=== PATIENT | female | born 1945 | race Caucasian/White ===

== ENCOUNTER 2016-12-26 21:46 | Inpatient (IN) | payer OTHER ==
[~2016-12-26] VITALS: Ht 154.9 cm; Wt 98.4 kg
[~2016-12-26 21:46] MED LIST: AMITRIPTYLINE H10 MG PO; HYOSCYAMINE0.375 MG PO; LEVOTHYROXINE75 MCG PO; METOPROLOL SUCC50 MG PO; PREVACID30 MG PO; ZANTAC75 M1 PO
[2016-12-27 09:46] VITALS: BP 155/76
[2016-12-27 13:53] LABS: POINT-OF-CARE METER ID UU13113675; POINT-OF-CARE USER ID 515036437
[2016-12-27 15:24] VITALS: BP 154/72
[2016-12-27 18:42] LABS: HEMATOCRIT 40.9 % (36.0-46.0); MCH 31.5 PG (29.0-34.0); MCHC 34.2 G/DL (30.0-36.0); MCV 91.9 FL (83-99); MEAN PLAT.VOLUME 10.3 uM^3 (9.5-12.4); PLATELET COUNT 229 K/uL (156-360); RBC DIS.WIDTH-CV 12.4 % (11.8-14.6); RBC DIS.WIDTH-SD 41.9 % (39-53); RED BLOOD COUNT 4.45 M/uL (3.80-5.20); WHITE BLOOD COUNT 8.9 K/uL (4.1-10.2)
[2016-12-27 19:08] LABS: ANION GAP 9 MEQ/L (2-14); CHLORIDE 101 MEQ/L (99-109); GFR ESTIMATE (CALCULATED) > 59 mL/min/; GLUCOSE 213 mg/dL (70-99); SAMPLE HEMOLYSIS CHECK 0; SAMPLE ICTERIC CHECK 0; SAMPLE LIPEMIA CHECK 0; SODIUM 136 MEQ/L (136-147); UREA NITROGEN (BUN) 13 mg/dL (9-23)
[2016-12-27 20:06] VITALS: BP 181/89
[2016-12-27 20:45] VITALS: BP 144/80
[2016-12-27 23:36] VITALS: BP 160/84
[2016-12-28 03:49] VITALS: BP 130/68
[2016-12-28 06:15] LABS: MCH 30.9 PG (29.0-34.0); MCHC 34.4 G/DL (30.0-36.0); MCV 90.1 FL (83-99); MEAN PLAT.VOLUME 10.5 uM^3 (9.5-12.4); PLATELET COUNT 256 K/uL (156-360); RBC DIS.WIDTH-CV 12.1 % (11.8-14.6); RED BLOOD COUNT 4.33 M/uL (3.80-5.20); WHITE BLOOD COUNT 10.5 K/uL (4.1-10.2)
[2016-12-28 06:36] LABS: ANION GAP 7 MEQ/L (2-14); CHLORIDE 102 MEQ/L (99-109); GFR ESTIMATE (CALCULATED) > 59 mL/min/; GLUCOSE 179 mg/dL (70-99); POTASSIUM 4.2 MEQ/L (3.7-5.4); SAMPLE HEMOLYSIS CHECK 0; SAMPLE ICTERIC CHECK 0; SAMPLE LIPEMIA CHECK 0; SODIUM 140 MEQ/L (136-147); UREA NITROGEN (BUN) 9 mg/dL (9-23)
[2016-12-28 07:10] VITALS: BP 138/68
[2016-12-28 11:15] VITALS: BP 120/63
[2016-12-28 15:25] VITALS: BP 149/70
[2016-12-28 18:00] VITALS: BP 103/51
[2016-12-28 19:37] VITALS: BP 132/62
[2016-12-29] VITALS: BP 138/74
[2016-12-29 03:26] VITALS: BP 146/70
[2016-12-29 05:57] LABS: HEMATOCRIT 35.8 % (36.0-46.0); MCH 31.2 PG (29.0-34.0); MCHC 33.8 G/DL (30.0-36.0); MCV 92.3 FL (83-99); MEAN PLAT.VOLUME 10.7 uM^3 (9.5-12.4); PLATELET COUNT 203 K/uL (156-360); RBC DIS.WIDTH-CV 12.9 % (11.8-14.6); RBC DIS.WIDTH-SD 43.3 % (39-53); RED BLOOD COUNT 3.88 M/uL (3.80-5.20); WHITE BLOOD COUNT 9.6 K/uL (4.1-10.2)
[2016-12-29 06:23] LABS: ANION GAP 4 MEQ/L (2-14); CHLORIDE 104 MEQ/L (99-109); GFR ESTIMATE (CALCULATED) > 59 mL/min/; POTASSIUM 3.9 MEQ/L (3.7-5.4); SAMPLE HEMOLYSIS CHECK 0; SAMPLE ICTERIC CHECK 0; SAMPLE LIPEMIA CHECK 0; SODIUM 140 MEQ/L (136-147); UREA NITROGEN (BUN) 11 mg/dL (9-23)
[2016-12-29 06:25] LABS: GLUCOSE 112 mg/dL (70-99)
[2016-12-29 08:00] VITALS: BP 149/79
[2016-12-29] MEDS ORDERED: TRAMADOL HCL50 MG PO (09:23)
== END 2016-12-29 11:14 | disposition home or self-care (01) | DRG 743 ==
LOC: ENRESERV 21:46 → 2SOUTH 12-27 09:00 → 2EAST 12-27 09:00 → 2SOUTH 12-27 09:52 → ENRESERV 12-27 14:08 → 2EAST 12-27 14:50 → 2SOUTH 12-27 15:18 → 2EAST 12-29 11:14
PROVIDERS: Obstetrics & Gynecology Gynecologic Oncology
DX: D25.9 Leiomyoma of uterus, unspecified (principal); I10 Essential (primary) hypertension; E11.9 Type 2 diabetes mellitus without complications; E78.5 Hyperlipidemia, unspecified; F41.9 Anxiety disorder, unspecified; L30.9 Dermatitis, unspecified; M72.2 Plantar fascial fibromatosis; M54.6 Pain in thoracic spine; H91.90 Unspecified hearing loss, unspecified ear; Z90.49 Acquired absence of other specified parts of digestive tract; Z87.891 Personal history of nicotine dependence; Z80.0 Family history of malignant neoplasm of digestive organs; Z80.3 Family history of malignant neoplasm of breast; Z82.49 Family history of ischemic heart disease and other diseases of the circulatory system; Z83.49 Family history of other endocrine, nutritional and metabolic diseases; Z98.51 Tubal ligation status
CPT/HCPCS: 36415; 80048; 82948; 85027; 86900; 86901; 86920; 88307; 94799; J0131; J0690; J1100; J1170; J1650; J1885; J2250; J2405; J2550; J2704; J2710; J2765; J3010